=== PATIENT | female | born 1945 | race Caucasian/White ===

== ENCOUNTER 2021-01-06 08:12 | Day surgery (SDC) | payer MEDICARE, BC ==
[2021-01-06] MEDS: Polymyxin B/Trimethoprim 10 ML Bottle EYERT SCH ×3 (09:32→11:16)
[2021-01-06] MEDS: Brimonidine 0.2% Ophth Soln 5 ML Bottle EYERT SCH ×4 (09:41→11:52)
[2021-01-06] MEDS: Phenylephrine 2.5% Ophth Soln 2 ML Bot EYERT SCH ×6 (09:47→11:50)
[2021-01-06] MEDS: Tropicamide 1% Ophth Soln 15 ML Bottle EYERT SCH ×4 (09:51→10:35)
--- NOTE | 2021-01-06 10:22 | PCM.PREANE ---
Preanesthetic Assessment - Procedure Proposed Procedure: Cataract Extraction of right eye with IOL. - Anesthesia/Transfusion/Family Hx Anesthesia History: Prior Anesthesia Without Reaction Family History of Anesthesia Reaction: No Transfusion History: Prior Transfusion Without Reaction Intubation History: Unknown - Review of Systems General: No Symptoms, Fatigue Pulmonary: No Symptoms (recent bronchitis) Cardiovascular: No Symptoms (Elevated cholesterol, HTN), Palpitations (occasionally) Gastrointestinal: No Symptoms (GERD), Diarrhea Neurological: No Symptoms (arthritis in the back) Other: Reports: None, Diabetes (diet controlled) - Physical Assessment NPO Status Date: 01/05/21 NPO Status Time: 20:00 Vital Signs: HR: 64 B/P: 138/61 Sat: 95% Temp: 97.9 Resp:16 Height: 1.55 m Weight: 78.018 kg ASA Class: 2 Mental Status: Alert & Oriented x3 Airway Class: Mallampati = 2 Dentition: Reports: Normal Dentition, Caries Thyro-Mental Finger Breadths: 3 Mouth Opening Finger Breadths: 3 ROM/Head Extension: Full Lungs: Clear to Auscultation, Normal Respiratory Effort Cardiovascular: Regular Rate, Regular Rhythm, No Murmurs - Allergies Allergies/Adverse Reactions: Allergies Allergy/AdvReac Type Severity Reaction Status Date / Time amoxicillin Allergy Cannot Verified 01/05/21 12:44 Remember estrogens, conjugated Allergy Other Verified 01/05/21 12:44 [From Premarin] vitamin K2 Allergy Edema Verified 01/05/21 12:44 - Anesthesia Plan Pre-Op Medication Ordered: None - Acknowledgements Anesthesia Type Planned: MAC Pt an Appropriate Candidate for the Planned Anesthesia: Yes Alternatives and Risks of Anesthesia Discussed w Pt/Guardian: Yes Pt/Guardian Understands and Agrees with Anesthesia Plan: Yes PreAnesthesia Questionnaire - HOME MEDS Home Medications: Home Meds Apixaban [Eliquis] 2.5 mg PO DAILY 01/05/21 [History] Ascorbic Acid [Vitamin C] 1,000 mg PO DAILY 01/05/21 [History] Carboxymethylcellulose Sodium [Refresh Tears] 1 drop EYEBOTH ASDIRECTED PRN 01/05/21 [History] Cyanocobalamin (Vitamin B-12) [Vitamin B-12] 1,000 mcg PO DAILY 01/05/21 [History] Magnesium Oxide 500 mg PO DAILY 01/05/21 [History] Omeprazole Magnesium [Prilosec Otc] 20 mg PO DAILY 01/05/21 [History] Potassium Chloride 10 meq PO DAILY 01/05/21 [History] Vit A/Vit C/Vit E/Zinc/Copper [Preservision] 1 tab PO DAILY 01/05/21 [History] lisinopriL [Lisinopril] 40 mg PO DAILY 01/05/21 [History] - CURRENT (IN HOUSE) MEDS Current Meds: Current Medications Brimonidine Tartrate (Alphagan 0.2% Ophth Soln) 0 ml EYERT ASDIRECTED [facility] Stop: 01/06/21 18:00 Last Admin: 01/06/21 09:41 Dose: 1 drop Documented by: Cefuroxime Sodium (Zinacef) 0 mg EYERT ASDIRECTED [facility] Stop: 01/06/21 18:00 Lidocaine HCl (Xylocaine-Mpf 1%) 0 ml INJECT ASDIRECTED [facility] Stop: 01/06/21 18:00 Phenylephrine HCl (Ventura-Synephrine 2.5% Ophth Soln) 0 ml EYERT ASDIRECTED [facility] Stop: 01/06/21 18:00 Last Admin: 01/06/21 10:07 Dose: 1 drop Documented by: Pilocarpine HCl (Pilocar 4% Ophth Soln) 0 ml EYERT ASDIRECTED [facility] Stop: 01/06/21 18:00 Polymyxin/Trimethoprim Sulfate (Polytrim Ophth Soln) 0 ml EYERT ASDIRECTED [facility] Stop: 01/06/21 18:00 Last Admin: 01/06/21 09:32 Dose: 1 drop Documented by: Tetracaine HCl (Tetracaine 0.5% Steri-Unit Aimee) 0 ml EYEBOTH ASDIRECTED [facility] Stop: 01/06/21 18:00 Tropicamide (Mydriacyl 1% Ophth Soln) 0 ml EYERT ASDIRECTED [facility] Stop: 01/06/21 18:00 Last Admin: 01/06/21 10:14 Dose: 1 drop Documented by:
[2021-01-06] MEDS: Tetracaine HCl/PF 0.5% 4 ML Bottle EYEBOTH SCH ×3 (10:45→11:51)
[2021-01-06] MEDS: Lidocaine 1% PF 2 ML SDV INJECT SCH ×2 (11:03→11:51)
[2021-01-06] MEDS: Pilocarpine 4% Ophth Soln 15 ML Bot EYERT SCH ×2 (11:16→11:52)
[2021-01-06] MEDS: Cefuroxime 10 MG/ML SYRINGE EYERT SCH ×2 (11:16→11:52)
--- NOTE | 2021-01-06 11:18 | PCM48HPAN ---
Post Anesthesia Note - EVALUATION WITHIN 48HRS OF ANESTHETIC Vital Signs in Normal Range: Yes Patient Participated in Evaluation: Yes Respiratory Function Stable: Yes Airway Patent: Yes Cardiovascular Function Stable: Yes Hydration Status Stable: Yes Pain Control Satisfactory: Yes Nausea and Vomiting Control Satisfactory: Yes Mental Status Recovered: Yes Vital Signs: Last Vital Signs Temp 36.6 C 01/06/21 09:15 Pulse 64 01/06/21 09:15 Resp 16 01/06/21 09:15 BP 138/61 01/06/21 09:15 Pulse Ox 95 01/06/21 09:15
== END 2021-01-06 11:30 | disposition home or self-care (01) ==
LOC: JD.SDS 08:12
PROVIDERS: ATTEND Ophthalmology
DX: E11.36 Type 2 diabetes mellitus with diabetic cataract (principal); H25.813 Combined forms of age-related cataract, bilateral; H40.003 Preglaucoma, unspecified, bilateral; H35.3131 Nonexudative age-related macular degeneration, bilateral, early dry stage; H31.012 Macula scars of posterior pole (postinflammatory) (post-traumatic), left eye; H16.103 Unspecified superficial keratitis, bilateral; H16.223 Keratoconjunctivitis sicca, not specified as Sjogren's, bilateral; H02.834 Dermatochalasis of left upper eyelid; H02.831 Dermatochalasis of right upper eyelid; I10 Essential (primary) hypertension; K21.9 Gastro-esophageal reflux disease without esophagitis; Z98.890 Other specified postprocedural states; Z79.01 Long term (current) use of anticoagulants; Z79.899 Other long term (current) drug therapy; Z88.0 Allergy status to penicillin; Z88.8 Allergy status to other drugs, medicaments and biological substances
CPT/HCPCS: 66984; J0697; C1780

== ENCOUNTER 2021-02-03 08:07 | Day surgery (SDC) | payer MEDICARE, BC ==
[2021-02-03] MEDS: Polymyxin B/Trimethoprim 10 ML Bottle EYELF SCH ×4 (08:23→09:47)
--- NOTE | 2021-02-03 08:25 | PCM.PREANE ---
Preanesthetic Assessment - Anesthesia/Transfusion/Family Hx Anesthesia History: Prior Anesthesia Without Reaction Family History of Anesthesia Reaction: No Transfusion History: Prior Transfusion Without Reaction Intubation History: Unknown - Review of Systems General: No Symptoms Pulmonary: No Symptoms Cardiovascular: No Symptoms Gastrointestinal: No Symptoms Neurological: No Symptoms Other: Reports: Diabetes - Physical Assessment NPO Status Date: 02/03/21 NPO Status Time: 06:00 Height: 1.55 m Weight: 76.657 kg ASA Class: 3 Mental Status: Alert & Oriented x3 Airway Class: Mallampati = 2 Dentition: Reports: Normal Dentition Thyro-Mental Finger Breadths: 2 Mouth Opening Finger Breadths: 2 ROM/Head Extension: Full Lungs: Clear to Auscultation, Normal Respiratory Effort Cardiovascular: Regular Rate, Regular Rhythm - Allergies Allergies/Adverse Reactions: Allergies Allergy/AdvReac Type Severity Reaction Status Date / Time amoxicillin Allergy Cannot Verified 02/02/21 12:54 Remember estrogens, conjugated Allergy Other Verified 02/02/21 12:54 [From Premarin] vitamin K2 Allergy Edema Verified 02/02/21 12:54 - Anesthesia Plan Pre-Op Medication Ordered: None - Acknowledgements Anesthesia Type Planned: MAC Pt an Appropriate Candidate for the Planned Anesthesia: Yes Alternatives and Risks of Anesthesia Discussed w Pt/Guardian: Yes Pt/Guardian Understands and Agrees with Anesthesia Plan: Yes PreAnesthesia Questionnaire Gastrointestinal History: Reports: GERD Other Genitourinary History: bladder CA - HOME MEDS Home Medications: Home Meds Apixaban [Eliquis] 2.5 mg PO DAILY 01/05/21 [History] Ascorbic Acid [Vitamin C] 1,000 mg PO DAILY 01/05/21 [History] Carboxymethylcellulose Sodium [Refresh Tears] 1 drop EYEBOTH ASDIRECTED PRN 01/05/21 [History] Cyanocobalamin (Vitamin B-12) [Vitamin B-12] 1,000 mcg PO DAILY 01/05/21 [History] Magnesium Oxide 500 mg PO DAILY 01/05/21 [History] Omeprazole Magnesium [Prilosec Otc] 20 mg PO DAILY 01/05/21 [History] Potassium Chloride 10 meq PO DAILY 01/05/21 [History] Vit A/Vit C/Vit E/Zinc/Copper [Preservision] 1 tab PO DAILY 01/05/21 [History] lisinopriL [Lisinopril] 40 mg PO DAILY 01/05/21 [History] - CURRENT (IN HOUSE) MEDS Current Meds: Current Medications Brimonidine Tartrate (Brimonidine 0.2% Ophth Soln 5 Ml Bottle) 0 ml EYELF ASDIRECTED [facility] Stop: 02/03/21 18:00 Cefuroxime Sodium (Cefuroxime 10 Mg/Ml Syringe) 0 mg EYELF ASDIRECTED [facility] Stop: 02/03/21 18:00 Lidocaine HCl (Lidocaine 1% Pf 2 Ml Sdv) 0 ml INJECT ASDIRECTED [facility] Stop: 02/03/21 18:00 Phenylephrine HCl (Phenylephrine 2.5% Ophth Soln 2 Ml Bot) 0 ml EYELF ASDIRECTED [facility] Stop: 02/03/21 18:00 Pilocarpine HCl (Pilocarpine 4% Ophth Soln 15 Ml Bot) 0 ml EYELF ASDIRECTED [facility] Stop: 02/03/21 18:00 Polymyxin/Trimethoprim Sulfate (Polymyxin B/Trimethoprim 10 Ml Bottle) 0 ml EYELF ASDIRECTED [facility] Stop: 02/03/21 18:00 Tetracaine HCl (Tetracaine Hcl/Pf 0.5% 4 Ml Bottle) 0 ml EYEBOTH ASDIRECTED [facility] Stop: 02/03/21 18:00 Tropicamide (Tropicamide 1% Ophth Soln 15 Ml Bottle) 0 ml EYELF ASDIRECTED [facility] Stop: 02/03/21 18:00
[2021-02-03] MEDS: Brimonidine 0.2% Ophth Soln 5 ML Bottle EYELF SCH ×4 (08:28→09:47)
[2021-02-03] MEDS: Phenylephrine 2.5% Ophth Soln 2 ML Bot EYELF SCH ×6 (08:34→09:29)
[2021-02-03] MEDS: Tetracaine HCl/PF 0.5% 4 ML Bottle EYEBOTH SCH ×5 (08:38→09:35)
[2021-02-03] MEDS: Lidocaine 1% PF 2 ML SDV INJECT SCH ×2 (08:38→09:36)
[2021-02-03] MEDS: Tropicamide 1% Ophth Soln 15 ML Bottle EYELF SCH ×4 (08:39→09:19)
[2021-02-03] MEDS: Cefuroxime 10 MG/ML SYRINGE EYELF SCH ×2 (08:39→09:46)
[2021-02-03] MEDS: Pilocarpine 4% Ophth Soln 15 ML Bot EYELF SCH ×2 (08:39→09:47)
--- NOTE | 2021-02-03 09:53 | PCM48HPAN ---
Post Anesthesia Note - EVALUATION WITHIN 48HRS OF ANESTHETIC Vital Signs in Normal Range: Yes Patient Participated in Evaluation: Yes Respiratory Function Stable: Yes Airway Patent: Yes Cardiovascular Function Stable: Yes Hydration Status Stable: Yes Pain Control Satisfactory: Yes Nausea and Vomiting Control Satisfactory: Yes Mental Status Recovered: Yes
== END 2021-02-03 09:58 | disposition home or self-care (01) ==
LOC: JD.SDS 08:07
PROVIDERS: ATTEND Ophthalmology
DX: E11.36 Type 2 diabetes mellitus with diabetic cataract (principal); H25.812 Combined forms of age-related cataract, left eye; H40.003 Preglaucoma, unspecified, bilateral; H35.3131 Nonexudative age-related macular degeneration, bilateral, early dry stage; H31.012 Macula scars of posterior pole (postinflammatory) (post-traumatic), left eye; H11.31 Conjunctival hemorrhage, right eye; E78.00 Pure hypercholesterolemia, unspecified; I10 Essential (primary) hypertension; Z88.1 Allergy status to other antibiotic agents; Z88.8 Allergy status to other drugs, medicaments and biological substances; Z85.51 Personal history of malignant neoplasm of bladder; Z79.899 Other long term (current) drug therapy; Z96.1 Presence of intraocular lens; Z98.890 Other specified postprocedural states
CPT/HCPCS: 66984; J0697; C1780